=== PATIENT | male | born 1990 | race Caucasian/White ===

== ENCOUNTER 2017-01-08 13:39 | Emergency (ER) | payer SELFPAY ==
[2017-01-08] MEDS ORDERED: Lidocaine 4% Cream 5 GM TUBE w/ Tegaderm ONE (14:02)
[2017-01-08] MEDS ORDERED: Lidocaine 1% 20 ML MDV ONE (14:35)
[2017-01-08] MEDS ORDERED: Triple Antibiotic Oint 1 GM Packet ONE (14:57)
== END 2017-01-08 14:55 | disposition home or self-care (01) ==
LOC: NAV ERS 13:39
DX: S01.81XA Laceration without foreign body of other part of head, initial encounter (principal); F17.210 Nicotine dependence, cigarettes, uncomplicated; W22.8XXA Striking against or struck by other objects, initial encounter
CPT/HCPCS: 12011; J2001